=== PATIENT | male | born 1990 | race Caucasian/White ===

== ENCOUNTER 2016-06-17 15:28 | Emergency (ER) | payer SELFPAY ==
[2016-06-17 15:38] VITALS: BP 141/74; PULSE 63; RESP 18; TEMP 98.1; O2SAT 97
[2016-06-17] MEDS ORDERED: IBUPROFEN 800 MG TAB PO ONE (15:56)
--- NOTE | 2016-06-17 15:56 | UCPHY ---
H & P Patient Type: New Chief Complaint Nursing Narrative: pain to r upper and lower tooth area for a couple of months Time Seen by Provider: 06/17/16 15:44 HPI/ROS: CHIEF COMPLAINT: Dental pain HISTORY OF PRESENT ILLNESS: Patient is a 25-year-old man who comes to the Urgent Care complaining pain and caries in several teeth. No fevers or swelling. No recent trauma. He states that he has had this pain off and on for several months. He tried to go to a dentist today but discovered he did not have insurance. He is trying to arrange Medicaid so that he can go to the dentist. He comes here requesting pain management. He states that it hurts when he eats anything cold. REVIEW OF SYSTEMS: Constitutional: denies: chills, fever, recent illness, recent injury EENTM: See HPI Respiratory: denies: cough, shortness of breath Cardiac: denies: chest pain, irregular heart rate, lightheadedness, palpitations Gastrointestinal/Abdominal: denies: abdominal pain, diarrhea, nausea, vomiting, blood streaked stools Genitourinary: denies: dysuria, frequency, hematuria, pain Musculoskeletal: denies: joint pain, muscle pain Skin: denies: lesions, rash, jaundice, bruising Neurological: denies: headache, numbness, paresthesia, tingling, dizziness, weakness Hematologic/Lymphatic: denies: blood clots, easy bleeding, easy bruising Immunologic/allergic: denies: HIV/AIDS, transplant EXAM: GENERAL: Well-appearing, well-nourished and in no acute distress. HEAD: Atraumatic, normocephalic. EYES: Pupils equal round and reactive to light, extraocular movements intact, sclera anicteric, conjunctiva are normal. ENT: Multiple caries visible and upper and lower teeth, no visible abscess, no fracture swelling. TMs normal, nares patent, oropharynx clear without exudates. Moist mucous membranes. NECK: Normal range of motion, supple without lymphadenopathy or JVD. LUNGS: Breath sounds clear to auscultation bilaterally and equal. No wheezes rales or rhonchi. HEART: Regular rate and rhythm without murmurs, rubs or gallops. ABDOMEN: Soft, nontender, normoactive bowel sounds. No guarding, no rebound. No masses appreciated. BACK: No CVA tenderness, no spinal tenderness, step-offs or deformities EXTREMITIES: Normal range of motion, no pitting or edema. No clubbing or cyanosis. NEUROLOGICAL: Cranial nerves II through XII grossly intact. Normal speech, normal gait. 5/5 strength, normal movement in all extremities, normal sensation PSYCH: Normal mood, normal affect. SKIN: Warm, dry, normal turgor, no visible rashes or lesions. Source: Patient Exam Limitations: No limitations - Medical/Surgical History Hx Asthma: No Hx Chronic Respiratory Disease: No Hx Diabetes: No Hx Cardiac Disease: No Hx Renal Disease: No Hx Cirrhosis: No Hx Alcoholism: No Other PMH: denies - Family History Significant Family History: No pertinent family hx - Social History Smoking Status: Former smoker Alcohol Use: Sober Drug Use: None Constitutional: Initial Vital Signs Temperature (C) 36.7 C 06/17/16 15:36 Heart Rate 63 06/17/16 15:36 Respiratory Rate 18 06/17/16 15:36 Blood Pressure 141/74 H 06/17/16 15:36 O2 Sat (%) 97 06/17/16 15:36 O2 Delivery Mode Room Air Allergies/Adverse Reactions: No Known Allergies Allergy (Unverified 06/17/16 15:36) Home Medications: Medication Instructions Recorded Ibuprofen 800 mg PO TID PRN #30 tablet 06/17/16 Medical Decision Making ED Course/Re-evaluation: We discussed pain management. I will per not prescribe narcotics. Patient agrees to ibuprofen follow up with dental aid. We discussed indications for returning. Differential Diagnosis: Partial list of the Differential diagnosis considered include but were not limited to; dental caries, abscess, fracture and although unlikely based on the history and physical exam, I also considered protatitis salivary gland stone , trauma sinus infection. I discussed these differential diagnoses and the plan with the patient as well as the usual and expected course. The patient understands that the diagnosis is provisional and that in medicine we are not always correct and that further workup is often warranted. Usual and customary warnings were given. All of the patient's questions were answered. The patient was instructed to return to the emergency department should the symptoms at all worsen or return, otherwise to followup with the physician as we discussed. - Data Points Medications Given: Discontinued Medications Ibuprofen (Motrin) 800 mg PO EDNOW ONE Stop: 06/17/16 15:57 Last Admin: 06/17/16 16:06 Dose: 800 mg Departure - Departure Disposition: Home, Routine, Self-Care Clinical Impression: Dental caries Condition: Fair Instructions: Dental Caries (ED) Referrals: NONE *PRIMARY CARE P,. [Primary Care Provider] - As per Instructions Dental Aid [Outside] - As per Instructions Prescriptions: Ibuprofen 800 mg PO TID PRN #30 tablet PRN Reason: Pain, Moderate - PQRS PQRS Measurement: Not applicable
[2016-06-17] MEDS ORDERED: IBUPROFEN 600 MG TAB PO ONE (15:59)
[2016-06-17] MEDS ORDERED: IBUPROFEN 200 MG TAB PO ONE (15:59)
== END 2016-06-17 16:06 | disposition home or self-care (01) ==
LOC: CED 15:28
DX: K02.9 Dental caries, unspecified (principal); K08.89 Other specified disorders of teeth and supporting structures; Z87.891 Personal history of nicotine dependence
CPT/HCPCS: 99204-PO; G0463-PO